=== PATIENT | female | born 1960 | race Caucasian/White ===

== ENCOUNTER 2025-11-05 13:13 | Outpatient (REF) | payer SELFPAY ==
[2025-11-05 13:25] LABS: Appearance Urine Cloudy; Glucose Urine UA Negative (Negative); PH 5.5 (5.0-9.0); Specific Gravity - Urine 1.020 (1.005-1.025); UMIC TRIGGER UA YES
== END 2025-11-05 13:14 ==
LOC: HO.LNP 13:13
PROVIDERS: Visit Provider Internal Medicine
DX: I89.9 Noninfective disorder of lymphatic vessels and lymph nodes, unspecified (principal)
CPT/HCPCS: 81001; 87086